=== PATIENT | female | born 1980 | race Caucasian/White ===

== ENCOUNTER 2018-02-26 19:11 | Emergency (ER) | payer MEDICAID ==
[~2018-02-26] VITALS: Ht 152.4 cm; Wt 74.6 kg
[2018-02-26 19:13] VITALS: BP 130/80
[2018-02-26] MEDS ORDERED: LORazepam 1MG TABLET PO ONE ×2 (20:00→21:00)
[2018-02-26] MEDS ORDERED: LORazepam 1MG TABLET ONE ×2 (20:08→21:21)
== END 2018-02-26 21:45 | disposition home or self-care (01) ==
LOC: ED 21:23
DX: F41.1 Generalized anxiety disorder (principal); F31.9 Bipolar disorder, unspecified; F17.200 Nicotine dependence, unspecified, uncomplicated
CPT/HCPCS: 99284

== ENCOUNTER 2018-04-10 15:55 | Emergency (ER) | payer MEDICAID ==
[~2018-04-10] VITALS: Ht 152.4 cm; Wt 74.5 kg
[2018-04-10 15:58] VITALS: BP 103/60
[2018-04-10] MEDS ORDERED: KETOROLAC 30 MG/1 ML ONE (16:07)
[2018-04-10] MEDS ORDERED: KETOROLAC 30 MG/1 ML IM ONE (16:30)
== END 2018-04-10 16:47 | disposition home or self-care (01) ==
LOC: ED 16:15
DX: K02.9 Dental caries, unspecified (principal); F41.1 Generalized anxiety disorder; F31.9 Bipolar disorder, unspecified; F90.9 Attention-deficit hyperactivity disorder, unspecified type; F17.200 Nicotine dependence, unspecified, uncomplicated
CPT/HCPCS: 96372; 99283; J1885

== ENCOUNTER 2019-03-27 20:55 | Emergency (ER) | payer MEDICAID ==
[~2019-03-27] VITALS: Ht 152.4 cm; Wt 72.5 kg
[2019-03-27 21:03] VITALS: BP 117/71
[2019-03-27] MEDS ORDERED: HYDROcodone/APAP 5/325 TABLET PO ONE (21:30)
[2019-03-27] MEDS ORDERED: HYDROcodone/APAP 5/325 TABLET ONE (21:42)
== END 2019-03-27 21:48 | disposition home or self-care (01) ==
LOC: ED 21:30
DX: K12.0 Recurrent oral aphthae (principal); K08.89 Other specified disorders of teeth and supporting structures
CPT/HCPCS: 99283